=== PATIENT | male | born 1985 | race African-American/Black ===

== ENCOUNTER 2024-11-28 12:59 | Emergency (ER) | payer MEDICAID | END 2024-11-28 17:11 | disposition left against medical advice (07) | LOC: ER 13:07 | DX: M25.519 Pain in unspecified shoulder (principal); Z53.21 Procedure and treatment not carried out due to patient leaving prior to being seen by health care provider; W19.XXXA Unspecified fall, initial encounter; Y93.89 Activity, other specified; Y92.89 Other specified places as the place of occurrence of the external cause; Y99.8 Other external cause status ==

== ENCOUNTER 2025-02-25 23:54 | Emergency (ER) | payer MEDICAID ==
[~2025-02-25] VITALS: Ht 180.3 cm; Wt 99.8 kg
[2025-02-26 00:02] VITALS: BP 133/97
[2025-02-26] MEDS ORDERED: DOXY100T2 PO (01:54)
[2025-02-26] MEDS ORDERED: DOXYCYCLINE HYCLATE 100 MG TABLET ONE (01:55)
[2025-02-26] MEDS ORDERED: CEFTRIAXONE 500 MG VIAL ONE (01:55)
[2025-02-26] MEDS: CEFTRIAXONE 500 MG VIAL IM ONE (02:05)
[2025-02-26] MEDS: DOXYCYCLINE HYCLATE 100 MG TABLET PO ONE (02:05)
[2025-02-26 02:40] LABS: HIV-1/2 ANTIBODY NON REACTIVE (NONREACTIVE)
[2025-02-26 03:31] VITALS: BP 129/92; O2SAT 97
[2025-02-28 16:07] LABS: *CHLAMYDIA NAA Negative (Negative); *GC NAA Negative (Negative); *TRIC.VAG. NAA Negative (Negative)
== END 2025-02-26 01:59 | disposition home or self-care (01) ==
LOC: ER 02-26 00:06
DX: Z20.2 Contact with and (suspected) exposure to infections with a predominantly sexual mode of transmission (principal); Z60.2 Problems related to living alone
CPT/HCPCS: 99283; 86592; 87806; 96372; 87491; J0696; 36415; A4606; A4663